=== PATIENT | male | born 1960 | race Caucasian/White ===

== ENCOUNTER 2022-11-30 20:14 | Emergency (ER) | payer BC ==
[~2022-11-30] VITALS: Ht 175.3 cm; Wt 113.4 kg
--- NOTE | 2022-11-30 20:18 | NUR ---
GARETH MONTOYA TO BED #6
[2022-11-30 20:19] VITALS: BP 131/75
--- NOTE | 2022-11-30 20:29 | NUR ---
Patient resting in bed, A/Ox4, chest rise and fall symmetrical, no c/o pain or s/s of distress, patient on monitor. Patient stated that he "has a history of scabies and gets treatment every four days, last treatment yesterday." ER Physician informed and verbalized understanding.
[2022-11-30 21:38] LABS: BASOPHILS % (AUTO) 0.5 % (0.0-2.0); EOSINOPHILS # (AUTO) 0.2 K/uL (0-0.4); EOSINOPHILS % (AUTO) 2.5 % (0.0-4.0); HEMATOCRIT 38.1 % (36-52); HEMOGLOBIN 12.8 g/dL (12.0-18.0); LYMPHOCYTES # (AUTO) 0.8 K/uL (2.0-11.5); LYMPHOCYTES % (AUTO) 11.6 % (20.5-51.1); MEAN CORPUSCULAR HEMOGLOBIN 31 pg (27-31); MEAN CORPUSCULAR HGB CONC 34 g/dL (33-37); MEAN CORPUSCULAR VOLUME 90.9 fL (80-94); MONOCYTES # (AUTO) 0.5 K/uL (0.8-1.0); MONOCYTES % (AUTO) 7.1 % (1.7-9.3); NEUTROPHILS # (AUTO) 5.6 K/uL (1.8-7.7); NEUTROPHILS % (AUTO) 78.3 % (42.2-75.2); PLATELET COUNT (AUTO) 164 K/uL (140-450); RED BLOOD CELL COUNT(AUTO) 4.19 MIL/uL (4.20-6.10); RED CELL DISTRIBUTION WIDTH 17.4 % (11.6-13.7); WHITE BLOOD COUNT (AUTO) 7.2 K/uL (4.8-10.8)
[2022-11-30] MEDS ORDERED: ONDANSETRON 4 MG/2 ML VIAL IVP ONE (21:55)
[2022-11-30] MEDS ORDERED: PANTOPRAZOLE 40 MG INJ VIAL IVP ONE (21:55)
[2022-11-30 21:56] LABS: ALBUMIN 2.4 g/dL (3.4-5.0); ANION GAP 8.5 (8-16); CARBON DIOXIDE 30.4 mmol/L (21-32); CREATININE 0.7 mg/dL (0.6-1.3); POTASSIUM 3.9 mmol/L (3.5-5.1); TOTAL BILIRUBIN 0.4 mg/dL (0.0-1.0)
--- NOTE | 2022-11-30 22:10 | NUR ---
Patient resting in bed, A/Ox4, chest rise and fall symmetrical, no c/o pain or s/s of distress, patient on monitor.
[2022-12-01] MEDS ORDERED: NACL 0.9% 1,000 ML IV ONE (00:30)
--- NOTE | 2022-12-01 00:34 | NUR ---
Patient resting in bed, A/Ox4, chest rise and fall symmetrical, no c/o pain or s/s of distress, patient on monitor.
[2022-12-01] MEDS ORDERED: METOCLOPRAMIDE 10 MG/2 ML INJ VIAL IVP ONE (01:30)
[2022-12-01] MEDS ORDERED: METO-485 PO (01:36)
[2022-12-01 01:41] LABS: APPEARANCE,URINE CLEAR (CLEAR); BILIRUBIN,URINE NEGATIVE (NEGATIVE); BLOOD, URINE NEGATIVE (NEGATIVE); COLOR,URINE YELLOW (YELLOW); LEUKOCYTE ESTERASE ,URINE NEGATIVE (NEGATIVE); NITRITE, URINE NEGATIVE (NEGATIVE); PH,URINE 8.5 (5.0-9.0); UGLUCOSE NEGATIVE (NEGATIVE)
--- NOTE | 2022-12-01 02:58 | NUR ---
Patient resting in bed, A/Ox4, chest rise and fall symmetrical, no c/o pain or s/s of distress, patient on monitor.
--- NOTE | 2022-12-01 04:30 | NUR ---
Patient resting in bed, A/Ox4, chest rise and fall symmetrical, no c/o pain or s/s of distress, patient on monitor.
--- NOTE | 2022-12-01 06:26 | NUR ---
Patient resting in bed, A/Ox4, chest rise and fall symmetrical, no c/o pain or s/s of distress, patient on monitor.
--- NOTE | 2022-12-01 07:28 | NUR ---
Change of shift report given to AM shift Nurse Shannon CASAREZ. AM shift Nurse Shannon CASAREZ verbalized understanding of report, no further questions.
--- NOTE | 2022-12-01 07:30 | NUR ---
RECEIVED PT IN [facility] AOX4. PENDING DC BACK TO [facility]. PT INCONTINENT OF URINE, CHANGED AND REPOSITIONED FOR COMFORT. NAD. SAFETY MAINTAINED.
[2022-12-01 10:00] VITALS: BP 134/79
--- NOTE | 2022-12-01 11:01 | NUR ---
PT PENDING TX ETA APPROX 1 HOUR. PT AND FAMILY MADE AWARE.
--- NOTE | 2022-12-01 11:39 | NUR ---
PT INCONTINENT OF URINE CLEANED AND REPOSITIONED. PENDING TX FOR DC HOME
--- NOTE | 2022-12-01 13:10 | NUR ---
[facility] AT [facility]
--- NOTE | 2022-12-01 13:17 | NUR ---
Patient discharged with v/s stable. Written and verbal after care instructions given and explained. GIVEN TO Patient alert, oriented and verbalized understanding of instructions. Ambulance Transport with to [facility]. All questions addressed prior to discharge. ID band removed. Patient advised to follow up with PMD. Rx of REGLAN given. Patient educated on indication of medication including possible reaction and side effects. Opportunity to ask questions provided and answered.
== END 2022-12-01 13:17 | disposition home or self-care (01) ==
LOC: MED 20:14
DX: N20.0 Calculus of kidney (principal); E88.09 Other disorders of plasma-protein metabolism, not elsewhere classified; R11.10 Vomiting, unspecified; R10.9 Unspecified abdominal pain; Z79.899 Other long term (current) drug therapy
CPT/HCPCS: 36415; 74176; 80053; 81003; 83690; 85025; 96361; 96374; 96375; 99285; C9113; J2405; J2765; J7030